=== PATIENT | female | born 1960 | race Caucasian/White ===

== ENCOUNTER 2017-11-19 08:13 | Emergency (ER) | payer OTHER ==
[~2017-11-19] VITALS: Ht 170.2 cm; Wt 111.9 kg
[~2017-11-19 08:13] MED LIST: ALBUTEROL SULF8.5 GM IH; CELEXA; CELEXA10 M1 PO; CELEXA20 MG PO; FERGON324 MG PO; FLEXERIL10 MG PO; GABAPENTIN100 MG PO; HYDROCHLOROTH12.5 MG PO; INDERAL20 MG PO; MAXZIDE 75/501 EACH PO; MOBIC7.5 MG PO; MOTRIN800 MG PO; NAPROSYN500 MG PO; NAPROXEN500 MG PO; NEXIUM40 MG PO; NORCO 5/3251 TABLET PO; PERCOCET 5-3251 EACH PO; PERCOCET 5/31 TABLET PO; PHENERGAN-CODE120 ML PO; PREDNISONE10 MG PO; PREDNISONE20 MG PO; PRILOSEC20 MG PO; PROPYLTHIOURACI50 MG PO; PROTONIX40 MG PO; TESSALON PERLE100 MG PO; ULTRAM50 MG PO; ZANTAC150 MG PO; ZITHROMAX Z-PA250 MG PO; ZOFRAN4 MG PO
[2017-11-19] MEDS ORDERED: MEDROL DOSEPAK4 MG PO (09:48)
[2017-11-19] MEDS ORDERED: MOTRIN800 MG PO (09:48)
[2017-11-19] MEDS ORDERED: FLEXERIL10 MG PO (09:48)
[2017-11-19 10:14] VITALS: BP 121/60
== END 2017-11-19 10:14 | disposition home or self-care (01) ==
LOC: EME 08:13
DX: M54.5 Low back pain (principal); G89.29 Other chronic pain; Z88.0 Allergy status to penicillin
CPT/HCPCS: 99281; 99284; J1885; J7512

== ENCOUNTER 2017-11-23 13:53 | Emergency (ER) | payer OTHER ==
[~2017-11-23] VITALS: Ht 170.2 cm; Wt 115.9 kg
[~2017-11-23 13:53] MED LIST changes: +MEDROL DOSEPAK4 MG PO
[2017-11-23] MEDS ORDERED: PREDNISONE20 MG PO (14:57)
[2017-11-23] MEDS ORDERED: ZITHROMAX TRI-500 MG PO (14:57)
[2017-11-23] MEDS ORDERED: AFRIN,GENASAL D15 ML BOTH NARES (14:58)
[2017-11-23 16:00] VITALS: BP 134/68
== END 2017-11-23 16:00 | disposition home or self-care (01) ==
LOC: EME 13:53
DX: J20.9 Acute bronchitis, unspecified (principal); J45.909 Unspecified asthma, uncomplicated; I10 Essential (primary) hypertension; K21.9 Gastro-esophageal reflux disease without esophagitis; F41.9 Anxiety disorder, unspecified; F32.9 Major depressive disorder, single episode, unspecified; Z88.0 Allergy status to penicillin
CPT/HCPCS: 99281; 99284; J7512

== ENCOUNTER 2018-01-09 11:11 | Emergency (ER) | payer OTHER ==
[~2018-01-09] VITALS: Ht 170.2 cm; Wt 108.5 kg
[~2018-01-09 11:11] MED LIST changes: +AFRIN,GENASAL D15 ML BOTH NARES; +ZITHROMAX TRI-500 MG PO
[2018-01-09] MEDS ORDERED: VALIUM2 MG PO (11:33)
[2018-01-09] MEDS ORDERED: TORADOL10 MG PO (11:33)
[2018-01-09 12:44] VITALS: BP 148/78
== END 2018-01-09 12:45 | disposition home or self-care (01) ==
LOC: EME 11:11
DX: M54.5 Low back pain (principal); K21.9 Gastro-esophageal reflux disease without esophagitis; F41.9 Anxiety disorder, unspecified; F32.9 Major depressive disorder, single episode, unspecified; Z87.19 Personal history of other diseases of the digestive system; Z88.0 Allergy status to penicillin; Z88.8 Allergy status to other drugs, medicaments and biological substances
CPT/HCPCS: 99281; 99283; J1885

== ENCOUNTER 2018-03-14 06:57 | Observation (INO) | payer OTHER ==
[~2018-03-14] VITALS: Ht 170.2 cm; Wt 107.5 kg
[~2018-03-14 06:57] MED LIST changes: +TORADOL10 MG PO; +VALIUM2 MG PO
[2018-03-14 08:23] LABS: BASOPHIL (%) 0.8 % (0-1); BASOPHIL COUNT 0.1 K/uL (0-0.1); EOSINOPHIL (%) 0.9 % (0-5); EOSINOPHIL COUNT 0.1 K/uL (0-0.3); HEMATOCRIT 41.1 % (36.0-46.0); HEMOGLOBIN 14.2 G/DL (11.9-15.5); IMMATURE GRANULOCYTE (%) 0.2 % (0.0-0.7); LYMPHOCYTE (%) 32.7 % (15-42); LYMPHOCYTE COUNT 2.2 K/uL (1.0-2.8); MCH 28.3 PG (29.0-34.0); MCHC 34.5 G/DL (30.0-36.0); MONOCYTE (%) 10.4 % (3-12); MONOCYTE COUNT 0.7 K/uL (0-0.8); NEUTROPHIL COUNT 3.7 K/uL (1.8-6.4); PLATELET COUNT 226 K/uL (156-360); RBC DIS.WIDTH-CV 12.7 % (11.8-14.6); RED BLOOD COUNT 5.01 M/uL (3.80-5.20); WHITE BLOOD COUNT 6.7 K/uL (4.1-10.2)
[2018-03-14 08:32] LABS: CHLORIDE 105 mEq/L (99-109); POTASSIUM 3.4 mEq/L (3.7-5.4); SODIUM 142 mEq/L (136-147)
[2018-03-14 08:33] LABS: GLUCOSE 114 mg/dL (70-99)
[2018-03-14 08:37] LABS: CREATININE 0.8 mg/dL (0.6-1.3); GFR ESTIMATE (CALCULATED) > 59 mL/min/
[2018-03-14 08:38] LABS: UREA NITROGEN (BUN) 13 mg/dL (9-23)
[2018-03-14] MEDS ORDERED: ANTIVERT25 MG PO (09:41)
[2018-03-14] MEDS ORDERED: BENTYL10 MG PO (14:20)
[2018-03-14 16:05] VITALS: BP 124/56
[2018-03-14 16:13] VITALS: BP 132/60
[2018-03-14 16:18] VITALS: BP 132/64
[2018-03-14 17:54] LABS: HDL CHOLESTEROL 43 MG/DL (Desirable>=50); LDL CHOLESTEROL 92 mg/dL (Desirable<100); NON-HDL CHOLESTEROL 118 mg/dL (Desirable<160); TOTAL CHOLESTEROL 161 mg/dL (Desirable<200); TRIGLYCERIDES 132 MG/DL (Normal: <150)
[2018-03-14 19:45] VITALS: BP 116/61
[2018-03-15] VITALS: BP 158/75
[2018-03-15 04:34] VITALS: BP 134/62
[2018-03-15 07:30] VITALS: BP 129/60
[2018-03-15 08:58] LABS: HEMOGLOBIN A1c (GLYCOHEMOGLOB) 5.7 % (Below 5.7)
[2018-03-15 12:35] VITALS: BP 137/74
== END 2018-03-15 13:51 | disposition home or self-care (01) ==
LOC: EME 06:57 → EDOF 12:34 → 4SOUTH 12:34 → ENRESERV 12:47 → 4SOUTH 15:49
PROVIDERS: Emergency Medicine; Hospitalist
DX: R42 Dizziness and giddiness (principal); K21.9 Gastro-esophageal reflux disease without esophagitis; I10 Essential (primary) hypertension; K58.9 Irritable bowel syndrome, unspecified; R26.89 Other abnormalities of gait and mobility; Z82.3 Family history of stroke; Z82.49 Family history of ischemic heart disease and other diseases of the circulatory system; Z83.3 Family history of diabetes mellitus; Z88.0 Allergy status to penicillin; Z88.8 Allergy status to other drugs, medicaments and biological substances
CPT/HCPCS: 70450; 80048; 80061; 83036; 85025; 93005; 99281; 99285; G0378; G8978 GP CH; G8979 GP CH; G8980 GP CH; J1650; J2405; J7030